=== PATIENT | male | born 1950 | race Caucasian/White ===

== ENCOUNTER 2018-03-11 07:54 | Day surgery (SDC) | payer OTHER ==
[2018-03-11 08:47] VITALS: TEMP 97.9
[2018-03-11 08:53] LABS: Mean Platelet Volume 8.3; Platelet Count 212 k/uL (150-450)
[2018-03-11 08:58] LABS: INR 1.3 (<1.2); Prothrombin Time 12.1 sec (9.0-12.0)
[2018-03-11] MEDS ORDERED: HYDROmorphone 1 MG/ML 1 ML SYRINGE IVP STA (10:50)
--- NOTE | 2018-03-11 13:33 | US ---
EXAMINATION TYPE: US paracentesis abd w/image DATE OF EXAM: 03/11/2018 COMPARISON: Prior CT 01/27/2018 HISTORY: Ascites. PROCEDURE: Maximal barrier technique was utilized. The skin overlying a suitable pocket of fluid was localized with ultrasound and the overlying skin was prepped and draped. Ultrasound was utilized with sterile technique. Lidocaine was used for local anesthesia and a skin chano made with a scalpel. Catheter was advanced under direct ultrasound guidance into a suitable pocket of fluid and approximately 6.4 liter s of serous fluid were removed. Catheter was withdrawn and hemostasis achieved. There is no immedia te complication; the patient is discharged in stable condition. IMPRESSION: STATUS POST ULTRASOUND GUIDED PARACENTESIS FOR PALLIATION OF ASCITES. THIS PROCEDURE WA S PERFORMED BY THE UNDERSIGNED. Specimen sent for laboratory analysis.
--- NOTE | 2018-03-11 13:41 | US ---
EXAMINATION TYPE: US biopsy liver DATE OF EXAM: 03/11/2018 HISTORY: Liver masses. FINDINGS: Maximal barrier technique was utilized. The skin overlying a suitable path to the patient' s left lobe liver mass was localized with ultrasound and the overlying skin prepped and draped. Ultr asound was utilized with sterile technique. Lidocaine was used for local anesthesia. A skin chano wa s made with a scalpel. An 18-gauge needle was advanced under direct ultrasound guidance and core spe cimen obtained of the mass. Specimen submitted in formalin to Pathology. Following the procedure, h emostasis achieved and the patient is discharged in stable condition without complication. IMPRESSION:STATUS POST ULTRASOUND GUIDED CORE BIOPSY OF left lobe liver MASS, PATHOLOGY IS PENDING. THIS PROCEDURE IS PERFORMED BY THE UNDERSIGNED.
[2018-03-11 13:49] VITALS: BP 98/56; PULSE 76; RESP 18
[2018-03-11 18:08] LABS: Protein, Total 7.7 g/dL (6.2-8.2)
[2018-03-12 14:43] LABS: Albumin 2.49 g/dL (3.80-4.90); Gamma Globulin 0.67 g/dL (0.70-1.50)
== END 2018-03-11 13:55 | disposition home or self-care (01) ==
LOC: RADPROMAIN 07:54
PROVIDERS: ATTEND Internal Medicine Gastroenterology
DX: C78.7 Secondary malignant neoplasm of liver and intrahepatic bile duct (principal); R18.8 Other ascites
CPT/HCPCS: 88108; 88305; 82565; 85049; 85610; 88342; 88307; 82042; 88341; 84165; 96374; 36415; 47000; 49083; J1170; 76942

== ENCOUNTER 2018-04-18 19:36 | Inpatient (IN) | payer OTHER, MEDICARE ==
[2018-04-18] MEDS ORDERED: ONDANSETRON 4 MG/2 ML VIAL IVP PRN (22:00)
[2018-04-18] MEDS: MORPHINE SULFATE 4 MG/ML SYRINGE IVP PRN (22:33)
[2018-04-18 23:10] LABS: HCT 39.6 % (39.0-53.0); HGB 12.9 gm/dL (13.0-17.5); MCH 33.4 pg (25.0-35.0); MCHC 32.5 g/dL (31.0-37.0); MCV 102.8 fL (80.0-100.0); Macrocytosis Slight; Mean Platelet Volume 7.9; Platelet Count 169 k/uL (150-450); RBC 3.85 m/uL (4.30-5.90); RDW 15.9 % (11.5-15.5)
[2018-04-18 23:14] LABS: INR 1.6 (<1.2); Prothrombin Time 14.5 sec (9.0-12.0)
[2018-04-18 23:18] LABS: WBC 0.8 k/uL (3.8-10.6)
[2018-04-18 23:19] LABS: Potassium 5.7 mmol/L (3.5-5.1); Total Bilirubin 2.2 mg/dL (0.2-1.3); Total Protein 6.7 g/dL (6.3-8.2)
[2018-04-19] MEDS: MORPHINE SULFATE 4 MG/ML SYRINGE IVP PRN ×3 (02:22→11:36)
[2018-04-19 07:40] VITALS: BMI 18.5
[2018-04-19] MEDS: IPRATROPIUM-ALBUTEROL 3 ML NEB INHALATION SCH ×4 (07:40→19:33)
[2018-04-19] MEDS: FAMOTIDINE 20 MG/2 ML VIAL IV SCH ×2 (09:32→19:53)
--- NOTE | 2018-04-19 10:51 | US ---
EXAMINATION TYPE: US abdomen limited DATE OF EXAM: 04/19/2018 COMPARISON: Previous study dated 03/11/2018 CLINICAL HISTORY: ascites, potential need for paracentesis. Severe ascites. There is a large amount of ascites. IMPRESSION: ASCITES.
[2018-04-19] MEDS ORDERED: ALBUTEROL NEBULIZED 2.5 MG/3 ML INHALATION PRN (10:52)
[2018-04-19] MEDS ORDERED: ALPRAZolam 0.25 MG TAB PO PRN (10:52)
[2018-04-19] MEDS ORDERED: SODIUM POLYSTYRENE SULFONATE 15 GM/60 ML BOTTLE PO STA (11:00)
[2018-04-19] MEDS: METOPROLOL TARTRATE 50 MG TAB PO SCH ×2 (11:35→19:53)
--- NOTE | 2018-04-19 12:10 | P.CONS ---
History of Present Illness - Reason for Consult Consult date: 04/19/18 Pancreatic cancer on chemotherapy Requesting physician: Bridgett Haskins - Chief Complaint Abdominal distension - History of Present Illness Mr. Benjamin is a very pleasant 59-year-old gentleman with recently diagnosed metastatic carcinoma of unknown primary who is here for He follows with Dr. Yao. He presented with progressive abdominal fullness and distention for about 4-6 months. Paracentesis was done 3 times with negative cytology. He also had progressive anorexia and weight loss of 40 pounds in the past 6 months. He had a staging workup that showed metastatic disease with a significantly elevated CA-19-9 of 70,000. His malignancy was was felt to be pancreatic origin. Palliative chemotherapy with FOLFOX was recommended which was started on 03/31/18. He had his second cycle of FOLFOX on 04/14/18. He is here for increasing abdominal distention. He is very uncomfortable due to this. No fevers, chills, nausea, vomiting, diarrhea, constipation, or other complaints. Paracentesis has been ordered. Workup in the ER otherwise unremarkable except for WBC of 0.8, an abdominal ultrasound significant for ascites. No smoking, alcohol, or drug use. No known family history of malignancy. Past Medical History Past Medical History: Asthma, COPD, Hypertension, Liver Disease Additional Past Medical History / Comment(s): anxiety ,depression History of Any Multi-Drug Resistant Organisms: None Reported Past Surgical History: Adenoidectomy, Hernia Repair, Tonsillectomy Additional Past Surgical History / Comment(s): coloscopy, paracentesis Past Anesthesia/Blood Transfusion Reactions: No Reported Reaction Past Psychological History: Anxiety, Depression Smoking Status: Former smoker Past Alcohol Use History: None Reported Past Drug Use History: None Reported - Past Family History Father Family Medical History: Asthma Medications and Allergies Home Medications Medication Instructions Recorded Confirmed Type ALPRAZolam [Xanax] 0.25 mg PO TID PRN 03/03/18 04/18/18 History Albuterol Sulfate [Proair 2 puff PO RT-QID PRN 03/03/18 04/18/18 History Respiclick] Aspirin 81 mg PO DAILY 03/03/18 04/18/18 History Atenolol [Tenormin] 50 mg PO DAILY 03/03/18 04/18/18 History Cholecalciferol [Vitamin D3] 1,000 unit PO DAILY 03/03/18 04/18/18 History Lisinopril [Prinivil] 10 mg PO DAILY 03/03/18 04/18/18 History Multivitamin [Men's Multi-Vitamin] 1 tab PO DAILY 03/03/18 04/18/18 History Pravastatin Sodium [Pravachol] 20 mg PO DAILY 03/03/18 04/18/18 History Spironolactone [Aldactone] 25 mg PO BID 03/03/18 04/18/18 History Tiotropium [place] [Spiriva] 1 cap INHALATION RT-DAILY 03/03/18 04/18/18 History Ascorbic Acid [Vitamin C] 500 mg PO BID 04/18/18 04/18/18 History Budesonide/Formoterol Fumarate 2 puff INHALATION RT-BID 04/18/18 04/18/18 History [Symbicort 160-4.5 Mcg Inhaler] Lisinopril [Zestril] 5 mg PO HS 04/18/18 04/18/18 History Triamcinolone 0.1% Cream [Kenalog 1 applicatio TOPICAL DAILY 04/18/18 04/18/18 History 0.1% Cream] Allergies Allergy/AdvReac Type Severity Reaction Status Date / Time Penicillins Allergy Anaphylaxis Verified 04/18/18 22:59 Physical Exam Vitals: Vital Signs Temp Pulse Resp BP Pulse Ox 04/19/18 05:00 98.0 F 115 H 20 103/68 92 L 04/18/18 23:12 111 H 04/18/18 21:35 98.9 F 139 H 16 116/75 97 Intake and Output 04/18/18 04/19/18 04/19/18 22:59 06:59 14:59 Other: Voiding Method Toilet Toilet Urinal Urinal # Voids 2 Weight 65.5 kg 65.5 kg General: In no acute distress. HEENT: Mucosa moist. Neck: Neck supple. Lymph: No cervical/supraclavicular LAD. Lungs: CTA-B without rhonchi or wheezing. Heart: RRR. No LE edema. Abdomen: Soft, nontender, although significant abdominal distension and tense abdomen due to large amount of ascites. MSK: 4/4 strength in all 4 extremities. Neuro: Alert and oriented 3. Skin: No jaundice or rash. Psych: Appropriate affect. Results CBC & Chem 7: 04/18/18 22:35 04/18/18 22:35 Labs: Abnormal Lab Results - Last 24 Hours (Table) 04/18/18 04/18/18 04/18/18 Range/Units 22:35 22:35 22:35 WBC 0.8 L* (3.8-10.6) k/uL RBC 3.85 L (4.30-5.90) m/uL Hgb 12.9 L (13.0-17.5) gm/dL MCV 102.8 H (80.0-100.0) fL RDW 15.9 H (11.5-15.5) % PT 14.5 H (9.0-12.0) sec INR 1.6 H (<1.2) Potassium 5.7 H (3.5-5.1) mmol/L Chloride 108 H (98-107) mmol/L Carbon Dioxide 17 L (22-30) mmol/L BUN 38 H (9-20) mg/dL Creatinine 1.65 H (0.66-1.25) mg/dL Total Bilirubin 2.2 H (0.2-1.3) mg/dL Albumin 3.0 L (3.5-5.0) g/dL US - abdomen: report reviewed Assessment and Plan Assessment: 1. Recurrent ascites 2. Severe neutropenia due to chemotherapy 3. 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 CKD Plan: Mr. Layton is a very pleasant 67-year-old gentleman with newly found metastatic adenocarcinoma likely pancreatic origin recently started on FOLFOX status post cycle 2 on 04/14/18 here for significant abdominal distention and discomfort due to recurrent ascites. Agree with therapeutic paracentesis. He is significantly neutropenic from recent chemotherapy however he is afebrile. No signs of infection otherwise. No need for G-CSF. Monitor closely for fevers with neutropenic precautions. No objections to discharge from oncologic standpoint after paracentesis. Discussed with the patient in detail and is agreeable to the plan. All of his questions were answered.
--- NOTE | 2018-04-19 13:42 | P.HPIM ---
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 Patient has nonspecific elevation in d-dimer without any symptoms of a pulmonary embolism. Patient also has lactic acidosis secondary to liver failure. Patient is basically admitted for paracentesis patient is scheduled paracentesis as an outpatient but will require paracentesis earlier than scheduled because of which patient is being admitted at this time patient has pancreatic cancer received very chemotherapy recently leading to some low white blood cell count. Patient received FOLFOX on april. Patient has elevated potassium secondary to Aldactone and lisinopril both of which are being held patient is not on IV fluids as he has severe ascites and his lactic acidosis is not significant for infection or intravascular volume depletion and is secondary to cirrhosis. We' ll repeat lactic acid again. Patient will be given capsulate. D-dimer is a nonspecific elevation secondary to his cancer itself. Patient's INR is 1.6 beats because of which she will not require any DVT prophylaxis at this time will order ultrasound guided paracentesis. And repeat labs tomorrow and if labs are better tomorrow and if his symptoms of shortness of breath and discomfort improves patient will be discharged tomorrow. today is quite weak and will require PT and OT evaluation Review of Systems REVIEW OF SYSTEMS: CONSTITUTIONAL: No fever, no malaise, no fatigue. HEENT: No recent visual problems or hearing problems. Denied any sore throat. CARDIOVASCULAR: No chest pain, orthopnea, PND, no palpitations, no syncope. PULMONARY: No shortness of breath, no cough, no hemoptysis. GASTROINTESTINAL: As mentioned and told history NEUROLOGICAL: No headaches, no weakness, no numbness. HEMATOLOGICAL: Denies any bleeding or petechiae. GENITOURINARY: Denies any burning micturition, frequency, or urgency. MUSCULOSKELETAL/RHEUMATOLOGICAL: Denies any joint pain, swelling, or any muscle pain. ENDOCRINE: Denies any polyuria or polydipsia. The rest of the 14-point review of systems is negative. Past Medical History Past Medical History: Asthma, COPD, Hypertension, Liver Disease Additional Past Medical History / Comment(s): anxiety ,depression History of Any Multi-Drug Resistant Organisms: None Reported Past Surgical History: Adenoidectomy, Hernia Repair, Tonsillectomy Additional Past Surgical History / Comment(s): coloscopy, paracentesis Past Anesthesia/Blood Transfusion Reactions: No Reported Reaction Past Psychological History: Anxiety, Depression Smoking Status: Former smoker Past Alcohol Use History: None Reported Past Drug Use History: None Reported - Past Family History Father Family Medical History: Asthma Medications and Allergies Home Medications Medication Instructions Recorded Confirmed Type ALPRAZolam [Xanax] 0.25 mg PO TID PRN 03/03/18 04/18/18 History Albuterol Sulfate [Proair 2 puff PO RT-QID PRN 03/03/18 04/18/18 History Respiclick] Aspirin 81 mg PO DAILY 03/03/18 04/18/18 History Atenolol [Tenormin] 50 mg PO DAILY 03/03/18 04/18/18 History Cholecalciferol [Vitamin D3] 1,000 unit PO DAILY 03/03/18 04/18/18 History Lisinopril [Prinivil] 10 mg PO DAILY 03/03/18 04/18/18 History Multivitamin [Men's Multi-Vitamin] 1 tab PO DAILY 03/03/18 04/18/18 History Pravastatin Sodium [Pravachol] 20 mg PO DAILY 03/03/18 04/18/18 History Spironolactone [Aldactone] 25 mg PO BID 03/03/18 04/18/18 History Tiotropium [place] [Spiriva] 1 cap INHALATION RT-DAILY 03/03/18 04/18/18 History Ascorbic Acid [Vitamin C] 500 mg PO BID 04/18/18 04/18/18 History Budesonide/Formoterol Fumarate 2 puff INHALATION RT-BID 04/18/18 04/18/18 History [Symbicort 160-4.5 Mcg Inhaler] Lisinopril [Zestril] 5 mg PO HS 04/18/18 04/18/18 History Triamcinolone 0.1% Cream [Kenalog 1 applicatio TOPICAL DAILY 04/18/18 04/18/18 History 0.1% Cream] Allergies Allergy/AdvReac Type Severity Reaction Status Date / Time Penicillins Allergy Anaphylaxis Verified 04/18/18 22:59 Physical Exam Vitals: Vital Signs Temp Pulse Pulse Resp BP Pulse Ox 04/19/18 11:53 110 H 04/19/18 11:43 110 H 04/19/18 07:50 112 H 04/19/18 07:40 110 H 04/19/18 05:00 98.0 F 115 H 20 103/68 92 L 04/18/18 23:12 111 H 04/18/18 21:35 98.9 F 139 H 16 116/75 97 Intake and Output 04/18/18 04/19/18 04/19/18 22:59 06:59 14:59 Other: Voiding Method Toilet Toilet Urinal Urinal # Voids 2 0 Weight 65.5 kg 65.5 kg PHYSICAL EXAMINATION: GENERAL: The patient is alert and oriented x3, not in any acute distress. Thin built cachectic. HEENT: Pupils are round and equally reacting to light. EOMI. No scleral icterus. No conjunctival pallor. Normocephalic, atraumatic. No pharyngeal erythema. No thyromegaly. CARDIOVASCULAR: S1 and S2 present. No murmurs, rubs, or gallops. PULMONARY: Chest is clear to auscultation, no wheezing or crackles. ABDOMEN: As distended nontender shifting dullness is present and fluid thrill is present. Without medical hernia signs of cirrhosis. MUSCULOSKELETAL: No joint swelling or deformity. EXTREMITIES: No cyanosis, clubbing, or pedal edema. NEUROLOGICAL: Gross neurological examination did not reveal any focal deficits. SKIN: No rashes. Results CBC & Chem 7: 04/18/18 22:35 04/18/18 22:35 Labs: Abnormal Lab Results - Last 24 Hours (Table) 04/18/18 04/18/18 04/18/18 Range/Units 22:35 22:35 22:35 WBC 0.8 L* (3.8-10.6) k/uL RBC 3.85 L (4.30-5.90) m/uL Hgb 12.9 L (13.0-17.5) gm/dL MCV 102.8 H (80.0-100.0) fL RDW 15.9 H (11.5-15.5) % PT 14.5 H (9.0-12.0) sec INR 1.6 H (<1.2) Potassium 5.7 H (3.5-5.1) mmol/L Chloride 108 H (98-107) mmol/L Carbon Dioxide 17 L (22-30) mmol/L BUN 38 H (9-20) mg/dL Creatinine 1.65 H (0.66-1.25) mg/dL Plasma Lactic Acid [place] (0.7-2.0) mmol/L Total Bilirubin 2.2 H (0.2-1.3) mg/dL Albumin 3.0 L (3.5-5.0) g/dL 04/19/18 Range/Units 12:19 WBC (3.8-10.6) k/uL RBC (4.30-5.90) m/uL Hgb (13.0-17.5) gm/dL MCV (80.0-100.0) fL RDW (11.5-15.5) % PT (9.0-12.0) sec INR (<1.2) Potassium (3.5-5.1) mmol/L Chloride (98-107) mmol/L Carbon Dioxide (22-30) mmol/L BUN (9-20) mg/dL Creatinine (0.66-1.25) mg/dL Plasma Lactic Acid [place] 4.2 H* (0.7-2.0) mmol/L Total Bilirubin (0.2-1.3) mg/dL Albumin (3.5-5.0) g/dL Thrombosis Risk Factor Assmnt - Choose All That Apply Any of the Below Risk Factors Present?: Yes Each Risk Factor Represents 2 Points: Age 61-74 years Thrombosis Risk Factor Assessment Total Risk Factor Score: 2 Thrombosis Risk Factor Assessment Level: Low Risk Assessment and Plan Plan: -Ascites, symptomatic leading to shortness of breath and abdominal discomfort secondary to cirrhosis probably alcoholic cirrhosis [place] paracentesis as mentioned above I do not believe patient has spontaneous rectal peritonitis at this time. --Pancreatic cancer recently received chemotherapy -Neutropenia secondary to recent chemotherapy already received the colony- stimulating acting factor injection oncology was consulted -Hyperkalemia secondary to KIMBERLEY inhibitor and Aldactone both of which are being held, Late as mentioned above -COPD without any acute exacerbation -Sinus tachycardia reflex tachycardia as patient did not receive his beta nora patient will be resumed on beta nora but will start him on metoprolol instead of atenolol because of borderline low blood pressure -Depression
[2018-04-19 15:13] LABS: Appearance,BF Hazy; Color,BF Yellow
[2018-04-19 15:14] LABS: Nucleated Cells, Body Fluid 28 /uL; RBC, Body Fluid 25 /uL
[2018-04-19 15:30] LABS: Mononuclear WBC,Body Fluid 100 %; Total Cells Counted,Body Fluid 100
[2018-04-19] MEDS: SYMBICORT 160-4.5 MCG INHALER INHALATION SCH (19:33)
[2018-04-19] MEDS: CEFEPIME 2 GM in SODIUM CHLORIDE 0.9% 50 ML IVPB SCH (19:46)
[2018-04-19] MEDS: SODIUM CHLORIDE 0.9% 1,000 ML IV SCH (19:46)
[2018-04-19 23:01] LABS: Total Protein, Body Fluid 940 mg/dL
[2018-04-20] MEDS: CEFEPIME 2 GM in SODIUM CHLORIDE 0.9% 50 ML IVPB SCH ×2 (02:47→10:02)
[2018-04-20 06:14] LABS: Anisocytosis Slight; HCT 32.7 % (39.0-53.0); HGB 10.9 gm/dL (13.0-17.5); MCH 34.2 pg (25.0-35.0); MCHC 33.5 g/dL (31.0-37.0); MCV 102.4 fL (80.0-100.0); Macrocytosis Slight; Mean Platelet Volume 8.6; Platelet Count 105 k/uL (150-450); RDW 17.1 % (11.5-15.5); WBC 2.1 k/uL (3.8-10.6)
[2018-04-20] MEDS: IPRATROPIUM-ALBUTEROL 3 ML NEB INHALATION SCH ×4 (07:11→21:00)
[2018-04-20] MEDS: SYMBICORT 160-4.5 MCG INHALER INHALATION SCH ×2 (07:11→21:00)
[2018-04-20] MEDS ORDERED: NON-FORMULARY DRUG (Tiotropium Bromide [Spiriva] 1 CAP) INHALATION SCH (08:00)
[2018-04-20] MEDS ORDERED: ATENOLOL 50 MG TAB PO SCH (09:00)
[2018-04-20] MEDS: METOPROLOL TARTRATE 50 MG TAB PO SCH ×2 (10:03→22:15)
[2018-04-20] MEDS: FAMOTIDINE 20 MG/2 ML VIAL IV SCH (10:03)
[2018-04-20] MEDS: TRIAMCINOLONE 0.1% CREAM 80 GM TUBE TOPICAL SCH (10:04)
--- NOTE | 2018-04-20 14:59 | P.PN ---
Subjective Patient with cirrhosis and pancreatic cancer admitted for therapeutic paracentesis patient had removal of total of 8 L of peritoneal fluid. The fluid lab results are exudative in nature probably because of the pancreatic cancer. Patient had elevated lactic acid which has come down now to 2.5 lactic acid elevation is secondary to cirrhosis. His white blood cell count is getting better patient is bit tachycardic I do not have his potassium available today. We'll repeat this, his metabolic profile today as well as tomorrow. We will await for PT and OT evaluation possibility of discharge tomorrow. Constitutional: Denied any fatigue denied any fever. Cardio vascular: denied any chest pain, palpitations Gastrointestinal denied any nausea vomiting Pulmonary: Denied any shortness of breath cough Neurologic denied any new focal deficits All inpatient medications were reviewed and appropriate changes in these medications as dictated in the interval history and assessment and plan. Objective - Vital Signs Vital signs: Vital Signs Temp 97.7 F 04/20/18 05:49 Pulse 72 04/20/18 12:38 Resp 16 04/20/18 12:38 BP 123/60 04/20/18 12:38 Pulse Ox 100 04/20/18 12:38 Intake & Output 04/19/18 04/20/18 04/20/18 18:59 06:59 18:59 Intake Total 1230 Output Total 8700 Balance -8700 1230 Weight 65.5 kg Intake: Intake, IV Titration 400 Amount Sodium Chloride 0.9% 1, 400 000 ml @ 50 mls/hr IV . Q20H [facility] Rx#:[id number] Oral 830 Output: Drainage 8700 Right Abdomen 8700 Other: Voiding Method Toilet Toilet Toilet Urinal Urinal Urinal # Voids 0 1 2 - Exam PHYSICAL EXAMINATION: GENERAL: The patient is alert and oriented x3, not in any acute distress. Thin built cachectic. HEENT: Pupils are round and equally reacting to light. EOMI. No scleral icterus. No conjunctival pallor. Normocephalic, atraumatic. No pharyngeal erythema. No thyromegaly. CARDIOVASCULAR: S1 and S2 present. No murmurs, rubs, or gallops. PULMONARY: Chest is clear to auscultation, no wheezing or crackles. ABDOMEN: Soft today significantly improved abdominal distention after peritoneal tap MUSCULOSKELETAL: No joint swelling or deformity. EXTREMITIES: No cyanosis, clubbing, or pedal edema. NEUROLOGICAL: Gross neurological examination did not reveal any focal deficits. SKIN: No rashes. - Labs CBC & Chem 7: 04/20/18 06:00 04/18/18 22:35 Labs: Abnormal Lab Results - Last 24 Hours (Table) 04/19/18 04/19/18 04/20/18 Range/Units 17:02 21:51 06:00 WBC 2.1 L (3.8-10.6) k/uL RBC 3.20 L (4.30-5.90) m/uL Hgb 10.9 L (13.0-17.5) gm/dL Hct 32.7 L (39.0-53.0) % MCV 102.4 H (80.0-100.0) fL RDW 17.1 H (11.5-15.5) % Plt Count 105 L (150-450) k/uL Plasma Lactic Acid Rakan 5.2 H* 2.5 H* (0.7-2.0) mmol/L Microbiology - Last 24 Hours (Table) 04/19/18 14:45 Gram Stain - Preliminary Peritoneal Fluid Body Fluid Culture - Preliminary 04/19/18 14:45 Anaerobic Culture - Preliminary Peritoneal Fluid Assessment and Plan Plan: -Ascites, symptomatic leading to shortness of breath and abdominal discomfort is clearly improved patient looks much better today after therapeutic paracentesis removal of a wart 8 L of fluid appeared to be exudative secondary to cancer mostly --Pancreatic cancer recently received chemotherapy -Neutropenia secondary to recent chemotherapy, improving now -Hyperkalemia secondary to KIMBERLEY inhibitor and Aldactone both of which are being held, repeat compresses metabolic profile today -COPD without any acute exacerbation -Sinus tachycardia reflex tachycardia as patient did not receive his beta nora patient will be resumed on beta nora but will start him on metoprolol instead of atenolol because of borderline low blood pressure -Depression
[2018-04-20] MEDS: SODIUM CHLORIDE 0.9% 1,000 ML IV SCH (20:45)
--- NOTE | 2018-04-20 23:46 | P.CONS ---
History of Present Illness - Reason for Consult Consult date: 04/20/18 Ascites Requesting physician: Rosemarie Mckeon - Chief Complaint Shortness of breath - History of Present Illness 67-year-old with history of COPD, asthma and metastatic pancreatic cancer with suspected liver disease with presents with complaints of shortness of breath. On discussion with the patient's he has a known history of metastatic pancreatic cancer and has received his second cycle of FOLFOX with the last treatment on 04/14/2018. The patient has multiple complaints including shortness of breath and a 40 pound weight loss in the past 6 months. He is required removal of a site disease with 3 prior paracentesis. On this admission the patient had ascites found on ultrasound and underwent paracentesis with a large amount of fluid removed. The patient denies any nausea or vomiting at this time and is tolerating his diet. He denies any change in his abdominal pain or change in his bowel habits. No signs or symptoms of GI bleeding. Review of Systems REVIEW OF SYSTEMS: CARDIO: Denies any chest pain or palpitations. PULMONARY: Denies any wheezing but did have shortness of breath on presentation. GENITOURINARY: No dysuria or hematuria. MUSCULOSKELETAL: No weakness reported. SKIN: Denies any new rashes or lesions, jaundice or pallor. PSYCHIATRIC: Denies any depression or anxiety. NEUROLOGY: Denies headache, denies any new focal deficits. EARS: No tinnitus, discharge or new hearing loss. NOSE: No discharge or congestion. EYES: No pain in eyes or change in vision. CONSTITUTIONAL: Weight loss reported. No fever, chills, night sweats. Past Medical History Past Medical History: Asthma, COPD, Hypertension, Liver Disease Additional Past Medical History / Comment(s): anxiety ,depression History of Any Multi-Drug Resistant Organisms: None Reported Past Surgical History: Adenoidectomy, Hernia Repair, Tonsillectomy Additional Past Surgical History / Comment(s): coloscopy, paracentesis Past Anesthesia/Blood Transfusion Reactions: No Reported Reaction Past Psychological History: Anxiety, Depression Smoking Status: Former smoker Past Alcohol Use History: None Reported Past Drug Use History: None Reported - Past Family History Father Family Medical History: Asthma Medications and Allergies Home Medications Medication Instructions Recorded Confirmed Type ALPRAZolam [Xanax] 0.25 mg PO TID PRN 03/03/18 04/18/18 History Albuterol Sulfate [Proair 2 puff PO RT-QID PRN 03/03/18 04/18/18 History Respiclick] Aspirin 81 mg PO DAILY 03/03/18 04/18/18 History Atenolol [Tenormin] 50 mg PO DAILY 03/03/18 04/18/18 History Cholecalciferol [Vitamin D3] 1,000 unit PO DAILY 03/03/18 04/18/18 History Lisinopril [Prinivil] 10 mg PO DAILY 03/03/18 04/18/18 History Multivitamin [Men's Multi-Vitamin] 1 tab PO DAILY 03/03/18 04/18/18 History Pravastatin Sodium [Pravachol] 20 mg PO DAILY 03/03/18 04/18/18 History Tiotropium [place] [Spiriva] 1 cap INHALATION RT-DAILY 03/03/18 04/18/18 History Ascorbic Acid [Vitamin C] 500 mg PO BID 04/18/18 04/18/18 History Budesonide/Formoterol Fumarate 2 puff INHALATION RT-BID 04/18/18 04/18/18 History [Symbicort 160-4.5 Mcg Inhaler] Triamcinolone 0.1% Cream [Kenalog 1 applicatio TOPICAL DAILY 04/18/18 04/18/18 History 0.1% Cream] Allergies Allergy/AdvReac Type Severity Reaction Status Date / Time Penicillins Allergy Anaphylaxis Verified 04/18/18 22:59 Physical Exam Vitals: Vital Signs Temp Pulse Pulse Resp BP Pulse Ox 04/20/18 23:12 73 16 04/20/18 21:54 97 F L 73 16 90/54 100 04/20/18 16:00 72 16 04/20/18 12:38 72 16 123/60 100 04/20/18 08:00 55 L 16 04/20/18 07:22 102 H 04/20/18 07:11 100 04/20/18 05:49 97.7 F 55 L 16 103/49 100 Intake and Output 04/20/18 04/20/18 04/21/18 14:59 22:59 06:59 Intake Total 400 Balance 400 Intake: Intake, IV Titration 400 Amount Sodium Chloride 0.9% 1, 400 000 ml @ 50 mls/hr IV . Q20H [facility] Rx#:[id number] Other: Voiding Method Toilet Toilet Toilet Urinal Urinal Urinal # Voids 2 2 Weight 65.5 kg Results CBC & Chem 7: 04/20/18 06:00 04/18/18 22:35 Labs: Abnormal Lab Results - Last 24 Hours (Table) 04/20/18 Range/Units 06:00 WBC 2.1 L (3.8-10.6) k/uL RBC 3.20 L (4.30-5.90) m/uL Hgb 10.9 L (13.0-17.5) gm/dL Hct 32.7 L (39.0-53.0) % MCV 102.4 H (80.0-100.0) fL RDW 17.1 H (11.5-15.5) % Plt Count 105 L (150-450) k/uL Microbiology - Last 24 Hours (Table) 04/19/18 18:52 Blood Culture - Preliminary Blood No Growth after 24 hours 04/19/18 14:45 Gram Stain - Preliminary Peritoneal Fluid Body Fluid Culture - Preliminary 04/19/18 14:45 Anaerobic Culture - Preliminary Peritoneal Fluid US - abdomen: report reviewed (Abdominal ultrasound significant for ascites.) Assessment and Plan (1) Pancreatic cancer Current Visit: Yes Status: Acute Code(s): C25.9 - MALIGNANT NEOPLASM OF PANCREAS, UNSPECIFIED SNOMED Code(s): 144130391 (2) Ascites Current Visit: Yes Status: Acute Code(s): R18.8 - OTHER ASCITES SNOMED Code(s): 207301802 Plan: Supportive care Low-sodium diet Continue paracentesis as needed, studies consistent with liver etiology If creatinine improves can consider addition of Lasix and or spironolactone Continue pain control Continue treatment of malignancy per oncology Thank you for allowing us to participate in the care of this patient we will continue to follow
[2018-04-21] MEDS: SYMBICORT 160-4.5 MCG INHALER INHALATION SCH ×2 (07:59→20:13)
[2018-04-21] MEDS: IPRATROPIUM-ALBUTEROL 3 ML NEB INHALATION SCH ×4 (07:59→20:13)
[2018-04-21] MEDS: TRIAMCINOLONE 0.1% CREAM 80 GM TUBE TOPICAL SCH (11:55)
[2018-04-21] MEDS: METOPROLOL TARTRATE 50 MG TAB PO SCH ×2 (11:55→20:39)
[2018-04-21] MEDS: FAMOTIDINE 20 MG/2 ML VIAL IV SCH (11:55)
[2018-04-21] MEDS: SODIUM CHLORIDE 0.9% 1,000 ML IV SCH (11:56)
[2018-04-21] MEDS: VANCOMYCIN ORAL SOLUTION 250 MG/5 ML BOTTLE PO SCH ×3 (14:11→23:42)
[2018-04-21] MEDS: CHERRY FLAVOR 60 ML BOTTLE PO PRN ×2 (14:11→23:42)
[2018-04-21 14:48] LABS: Albumin 2.6 g/dL (3.5-5.0); Calcium 8.5 mg/dL (8.4-10.2); Potassium 5.6 mmol/L (3.5-5.1); Total Bilirubin 1.6 mg/dL (0.2-1.3)
--- NOTE | 2018-04-21 18:34 | P.PN ---
Subjective Progress Note Date: 04/21/18 Prognosis note being dictated for Dr. Mckeon. Interval history:Patient with cirrhosis and pancreatic cancer admitted for therapeutic paracentesis patient had removal of total of 8 L of peritoneal fluid. The fluid lab results are exudative in nature probably because of the pancreatic cancer. Patient had elevated lactic acid which has come down now to 2.5 lactic acid elevation is secondary to cirrhosis. His white blood cell count is getting better patient is bit tachycardic I do not have his potassium available today. We'll repeat this, his metabolic profile today as well as tomorrow. We will await for PT and OT evaluation possibility of discharge tomorrow. Constitutional: Denied any fatigue denied any fever. Cardio vascular: denied any chest pain, palpitations Gastrointestinal denied any nausea vomiting Pulmonary: Denied any shortness of breath cough Neurologic denied any new focal deficits All inpatient medications were reviewed and appropriate changes in these medications as dictated in the interval history and assessment and plan. 04/21/2018 persistent diarrhea, 3 episodes this morning. Tested positive for C. difficile. Oral vancomycin initiated. Denies abdominal pain. No nausea or vomiting. Worsening renal function, creatinine 2.06. Potassium 5.6. Objective - Vital Signs Vital signs: Vital Signs Temp 97.5 F L 04/21/18 12:34 Pulse 76 04/21/18 16:14 Resp 16 04/21/18 12:34 BP 125/62 04/21/18 12:34 Pulse Ox 95 04/21/18 12:34 Intake & Output 04/20/18 04/21/18 04/21/18 18:59 06:59 18:59 Intake Total 940 250 Balance 940 250 Weight 65.5 kg 65.5 kg Intake: Intake, IV Titration 700 250 Amount Cefepime 2 gm In Sodium 50 Chloride 0.9% 50 ml @ 100 mls/hr IVPB Q8H [facility] Rx#: [id number] Sodium Chloride 0.9% 1, 700 200 000 ml @ 50 mls/hr IV . Q20H [facility] Rx#:[id number] Oral 240 Other: Voiding Method Toilet Toilet Toilet Urinal Urinal Urinal Diaper Incontinent # Voids 2 2 # Bowel Movements 1 - Exam GENERAL: The patient is alert and oriented x3, not in any acute distress. Thin built cachectic. HEENT: Pupils are round and equally reacting to light. EOMI. No scleral icterus. No conjunctival pallor. Normocephalic, atraumatic. CARDIOVASCULAR: S1 and S2 present. No murmurs, rubs, or gallops. PULMONARY: Chest is clear to auscultation, no wheezing or crackles. ABDOMEN: Soft today significantly improved abdominal distention after peritoneal tap MUSCULOSKELETAL: No joint swelling or deformity. EXTREMITIES: No cyanosis, clubbing, or pedal edema. NEUROLOGICAL: Gross neurological examination did not reveal any focal deficits. - Labs CBC & Chem 7: 04/20/18 06:00 04/21/18 14:21 Labs: Abnormal Lab Results - Last 24 Hours (Table) 04/21/18 04/21/18 Range/Units 09:06 14:21 Potassium 5.6 H (3.5-5.1) mmol/L Chloride 112 H (98-107) mmol/L Carbon Dioxide 13 L (22-30) mmol/L BUN 79 H (9-20) mg/dL Creatinine 2.06 H (0.66-1.25) mg/dL Glucose 108 H (74-99) mg/dL Total Bilirubin 1.6 H (0.2-1.3) mg/dL Total Protein 6.0 L (6.3-8.2) g/dL Albumin 2.6 L (3.5-5.0) g/dL C. difficile (EIA) Intrp Positive A (Negative) Microbiology - Last 24 Hours (Table) 04/19/18 18:52 Blood Culture - Preliminary Blood No Growth after 24 hours 04/19/18 14:45 Gram Stain - Preliminary Peritoneal Fluid Body Fluid Culture - Preliminary Assessment and Plan Assessment: -Ascites, symptomatic leading to shortness of breath and abdominal discomfort. Status post therapeutic paracentesis removal of 8 L of fluid appeared to be exudative secondary to cancer mostly --Pancreatic cancer recently received chemotherapy -Neutropenia secondary to recent chemotherapy, improving now -Hyperkalemia secondary to KIMBERLEY inhibitor and Aldactone both of which are discontinued -COPD without any acute exacerbation -Sinus tachycardia reflex tachycardia, patient did not receive his beta nora, resumed on metoprolol secondary to borderline low blood pressure -Depression -Acute C. difficile colitis Plan: Continue on current medication regime ,monitoring and symptomatic treatment. Worsening renal function,therefore maintain IV fluids. Oral vancomycin initiated. Was monitoring of renal function, electrolyte with repeat labs ordered for a.m. The impression and plan of care has been dictated as directed. : I performed a history and examination of this patient, discussed the same with the dictator. I agree with the dictator's note ,documented as a scribe. Any additional findings or plans will be noted.
[2018-04-21] MEDS: MORPHINE SULFATE 4 MG/ML SYRINGE IVP PRN (21:48)
[2018-04-22] MEDS: CHERRY FLAVOR 60 ML BOTTLE PO PRN ×3 (05:14→17:51)
[2018-04-22] MEDS: VANCOMYCIN ORAL SOLUTION 250 MG/5 ML BOTTLE PO SCH ×3 (05:14→17:52)
[2018-04-22] MEDS: SODIUM CHLORIDE 0.9% 1,000 ML IV SCH (05:14)
[2018-04-22 05:47] LABS: Anisocytosis Slight; Basophils % (A) 0 %; Eosinophils % (A) 1 %; HCT 32.7 % (39.0-53.0); HGB 11.1 gm/dL (13.0-17.5); Lymphocytes # (A) 0.8 k/uL (1.0-4.8); Lymphocytes % (A) 65 %; MCH 33.7 pg (25.0-35.0); MCHC 33.9 g/dL (31.0-37.0); MCV 99.4 fL (80.0-100.0); Macrocytosis Slight; Monocytes % (A) 1 %; Neutrophils % (A) 28 %; RBC 3.29 m/uL (4.30-5.90)
[2018-04-22 05:57] LABS: Calcium 8.5 mg/dL (8.4-10.2); Potassium 5.2 mmol/L (3.5-5.1)
[2018-04-22 06:04] LABS: Neutrophils # (A) 0.4 k/uL (1.3-7.7); WBC 1.3 k/uL (3.8-10.6)
[2018-04-22 07:20] LABS: Platelet Count 93 k/uL (150-450)
[2018-04-22] MEDS: SYMBICORT 160-4.5 MCG INHALER INHALATION SCH ×2 (07:53→20:40)
[2018-04-22] MEDS: IPRATROPIUM-ALBUTEROL 3 ML NEB INHALATION SCH ×4 (07:53→20:40)
[2018-04-22] MEDS: TRIAMCINOLONE 0.1% CREAM 80 GM TUBE TOPICAL SCH (09:13)
[2018-04-22] MEDS: FAMOTIDINE 20 MG TAB PO SCH (09:13)
[2018-04-22] MEDS: METOPROLOL TARTRATE 50 MG TAB PO SCH ×2 (09:13→21:23)
--- NOTE | 2018-04-22 13:57 | P.PN ---
Subjective Progress Note Date: 04/22/18 Principal diagnosis: Metastatic pancreatic cancer shortness of breath Status post paracentesis cytology pending. C. diff EIA positive. One bowel movement since last night. White count 1.3. Hemoglobin 11.1. Platelet 93, 000. He should requesting discharge. Removed his IV from his Mediport. Creatinine slightly improved today 1.7. Objective - Vital Signs Vital signs: Vital Signs Temp 97.6 F 04/22/18 05:00 Pulse 88 04/22/18 12:38 Resp 17 04/22/18 05:00 BP 122/64 04/22/18 05:00 Pulse Ox 94 L 04/22/18 05:00 Intake & Output 04/21/18 04/22/18 04/22/18 18:59 06:59 18:59 Intake Total 310 1640 Balance 310 1640 Weight 65.5 kg 65.5 kg Intake: Intake, IV Titration 250 800 Amount Cefepime 2 gm In Sodium 50 Chloride 0.9% 50 ml @ 100 mls/hr IVPB Q8H [facility] Rx#: [id number] Sodium Chloride 0.9% 1, 200 800 000 ml @ 50 mls/hr IV . Q20H [facility] Rx#:[id number] Oral 60 840 Other: Voiding Method Toilet Toilet Toilet Urinal Urinal Urinal Diaper Diaper Diaper Incontinent Incontinent Incontinent # Voids 2 # Bowel Movements 1 - Exam General appearance: The patient is alert, oriented, in no acute distress. Cachectic appearance. HET: Head is normocephalic and atraumatic. Pupils are equal and reactive. Oropharynx is clear without lesions. Neck: Supple without lymphadenopathy. Trachea midline. Heart: S1 S2. Regular rate and rhythm. Lungs: No crackles or wheezes are heard. Abdomen: Soft, nontender, nondistended with bowel sounds. No peritoneal signs. No palpable organomegaly or masses. Extremities: Normal skin color and turgor. No cyanosis, rash, ulceration, clubbing, or edema. Radial and pedal pulses are 2/4 bilaterally. Neurological: No focal deficits. Strength and sensation are grossly intact. - Labs CBC & Chem 7: 04/22/18 05:20 04/22/18 05:20 Labs: Abnormal Lab Results - Last 24 Hours (Table) 04/21/18 04/22/18 04/22/18 Range/Units 14:21 05:20 05:20 WBC 1.3 L* (3.8-10.6) k/uL RBC 3.29 L (4.30-5.90) m/uL Hgb 11.1 L (13.0-17.5) gm/dL Hct 32.7 L (39.0-53.0) % RDW 16.0 H (11.5-15.5) % Plt Count 93 L (150-450) k/uL Neutrophils # 0.4 L* (1.3-7.7) k/uL Lymphocytes # 0.8 L (1.0-4.8) k/uL Potassium 5.6 H 5.2 H (3.5-5.1) mmol/L Chloride 112 H 114 H (98-107) mmol/L Carbon Dioxide 13 L 15 L (22-30) mmol/L BUN 79 H 79 H (9-20) mg/dL Creatinine 2.06 H 1.79 H (0.66-1.25) mg/dL Glucose 108 H 109 H (74-99) mg/dL Total Bilirubin 1.6 H (0.2-1.3) mg/dL Total Protein 6.0 L (6.3-8.2) g/dL Albumin 2.6 L (3.5-5.0) g/dL Microbiology - Last 24 Hours (Table) 04/19/18 18:52 Blood Culture - Preliminary Blood No Growth after 48 hours 04/19/18 14:45 Gram Stain - Preliminary Peritoneal Fluid Body Fluid Culture - Preliminary 04/19/18 14:45 Anaerobic Culture - Preliminary Peritoneal Fluid Assessment and Plan (1) Ascites Current Visit: Yes Status: Acute Code(s): R18.8 - OTHER ASCITES SNOMED Code(s): 076363004 (2) Pancreatic cancer Current Visit: Yes Status: Acute Code(s): C25.9 - MALIGNANT NEOPLASM OF PANCREAS, UNSPECIFIED SNOMED Code(s): 843201675 Plan: Paracentesis cytology pending. Continue a low-sodium diet. Antibiotics empirically for positive C. diff. Consideration for low-dose diuretics as creatinine continues to improve. Discharge per medicine. Assessment and plan a care discussed with Dr. Howe
[2018-04-22] MEDS: MORPHINE SULFATE 4 MG/ML SYRINGE IVP PRN (19:37)
[2018-04-22 23:26] VITALS: TEMP 97.8
[2018-04-23] MEDS: VANCOMYCIN ORAL SOLUTION 250 MG/5 ML BOTTLE PO SCH ×5 (00:36→23:07)
[2018-04-23] MEDS: SODIUM CHLORIDE 0.9% 1,000 ML IV SCH ×2 (00:36→23:06)
[2018-04-23] MEDS: CHERRY FLAVOR 60 ML BOTTLE PO PRN (00:36)
[2018-04-23 05:59] VITALS: PULSE 69
[2018-04-23] MEDS: SYMBICORT 160-4.5 MCG INHALER INHALATION SCH ×2 (08:30→20:56)
[2018-04-23] MEDS: IPRATROPIUM-ALBUTEROL 3 ML NEB INHALATION SCH ×4 (08:30→20:56)
[2018-04-23] MEDS: FAMOTIDINE 20 MG TAB PO SCH (09:21)
[2018-04-23] MEDS: METOPROLOL TARTRATE 50 MG TAB PO SCH ×2 (09:21→20:24)
[2018-04-23] MEDS: TRIAMCINOLONE 0.1% CREAM 80 GM TUBE TOPICAL SCH (09:22)
--- NOTE | 2018-04-23 10:21 | P.PN ---
Subjective Progress Note Date: 04/23/18 Principal diagnosis: Metastatic pancreatic cancer shortness of breath Status post paracentesis cytology pending. C. diff EIA positive. Confused. Objective - Vital Signs Vital signs: Vital Signs Temp 97.8 F 04/23/18 05:00 Pulse 69 04/23/18 05:00 Resp 16 04/23/18 05:00 BP 109/48 04/23/18 05:00 Pulse Ox 100 04/23/18 05:00 Intake & Output 04/22/18 04/23/18 04/23/18 18:59 06:59 18:59 Intake Total 140 400 Balance 140 400 Intake: Intake, IV Titration 140 400 Amount Sodium Chloride 0.9% 1, 140 400 000 ml @ 50 mls/hr IV . Q20H [facility] Rx#:[id number] Oral 0 Other: Voiding Method Toilet Diaper Urinal Incontinent Diaper Incontinent # Voids 0 - Exam General appearance: The patient is alert, oriented, to self in no acute distress. Cachectic appearance. HET: Head is normocephalic and atraumatic. Pupils are equal and reactive. Oropharynx is clear without lesions. Neck: Supple without lymphadenopathy. Trachea midline. Heart: S1 S2. Regular rate and rhythm. Lungs: No crackles or wheezes are heard. Abdomen: Soft, nontender, nondistended with bowel sounds. No peritoneal signs. No palpable organomegaly or masses. Extremities: Normal skin color and turgor. No cyanosis, rash, ulceration, clubbing, or edema. Radial and pedal pulses are 2/4 bilaterally. Neurological: No focal deficits. Strength and sensation are grossly intact. - Labs CBC & Chem 7: 04/22/18 05:20 04/22/18 05:20 Labs: Microbiology - Last 24 Hours (Table) 04/19/18 18:52 Blood Culture - Preliminary Blood No Growth after 72 hours 04/19/18 14:45 Gram Stain - Preliminary Peritoneal Fluid Body Fluid Culture - Preliminary Assessment and Plan (1) Ascites Current Visit: Yes Status: Acute Code(s): R18.8 - OTHER ASCITES SNOMED Code(s): 533504153 (2) Pancreatic cancer Current Visit: Yes Status: Acute Code(s): C25.9 - MALIGNANT NEOPLASM OF PANCREAS, UNSPECIFIED SNOMED Code(s): 105199330 Plan: Paracentesis cytology pending. Ammonia level rule out hepatic encephalopathy patient is confused. Continue a low-sodium diet. Antibiotics empirically for positive C. diff. Consideration for low-dose diuretics as creatinine continues to improve. Discharge per medicine. Assessment and plan a care discussed with Dr. Howe
[2018-04-23 11:23] LABS: Anisocytosis Slight; HCT 33.8 % (39.0-53.0); HGB 11.2 gm/dL (13.0-17.5); MCH 34.1 pg (25.0-35.0); MCHC 33.2 g/dL (31.0-37.0); MCV 102.6 fL (80.0-100.0); Macrocytosis Moderate; RBC 3.29 m/uL (4.30-5.90); RDW 17.2 % (11.5-15.5); WBC 0.5 k/uL (3.8-10.6)
[2018-04-23 11:24] LABS: Platelet Count 62 k/uL (150-450)
[2018-04-23 11:30] LABS: Albumin 2.5 g/dL (3.5-5.0); Calcium 8.9 mg/dL (8.4-10.2); Potassium 5.7 mmol/L (3.5-5.1); Total Bilirubin 3.3 mg/dL (0.2-1.3); Total Protein 5.7 g/dL (6.3-8.2)
--- NOTE | 2018-04-23 11:57 | CDI ---
Last Revision, May 2017 Documentation Clarification Form Date: 04/23/2018 11:47:54 AM From: Mendy Murrell RN, CCDS Admit Date: 04/18/2018 10:30:00 PM Patient Name: Mir Benjamin Visit Number: [id number] ATTENTION: The Clinical Documentation Specialists (CDI) and [facility] Coding Staff appreciate your assistance in clarifying documentation. Please respond to the clarification below the line at the bottom and electronically sign. The CDI & [facility] Coding staff will review the response and follow-up if needed. Please note: Queries are made part of the Legal Health Record. If you have any questions, please contact the author of this message via ITS. Bridgett Lucas MD "Worsening renal function" was documented in the 04/21 Progress note and requires further clairification. History/Risk Factors: alcoholic cirrhosis, pancreatic CA, COPD 03/27/18 Patients baseline BUN/CR/GFR: 41/1.5/ 47.2 Clinical Indicators: Current BUN: 38/79/79/94 Cr: 1.62/2.06/1.79/2.55 GFR : 42/32/38/25 Treatment: Consults: GI, Oncology IVF: 0.9% NS @ 50 cc/hr In order to capture the severity of condition, please clarify if the condition signifies: Acute renal failure, Please specify etiology (if known): Cortical Necrosis Medullary Necrosis Tubular Necrosis Acute kidney injury Acute on chronic renal failure CKD Stage 1 GFR >90 CKD Stage 2 GFR 60-89 CKD Stage 3 GFR 30-59 CKD Stage 4 GFR 15-29 CKD Stage 5 GFR <15 Chronic renal failure/Chronic Kidney disease (CKD) please stage if known CKD Stage 1 GFR >90 CKD Stage 2 GFR 60-89 CKD Stage 3 GFR 30-59 CKD Stage 4 GFR 15-29 CKD Stage 5 GFR <15 ESRD Other, please specify Unable to determine Please continue to document in your progress notes and discharge summary in order to capture severity of illness and risk of mortality. Include clinical findings that support your diagnosis. MTDD
[2018-04-23] MEDS ORDERED: DEXTROSE 50%-WATER 50 ML SYRINGE IVP STA (12:03)
[2018-04-23 12:09] LABS: Poikilocytosis (M) Present
[2018-04-23] MEDS: FILGRASTIM-SNDZ 300 MCG/0.5 ML SYRINGE SQ SCH (12:24)
[2018-04-23 12:33] LABS: Glucose,Whole Blood 50 mg/dL (75-99)
[2018-04-23 12:34] LABS: Glucose,Whole Blood 87 mg/dL (75-99)
[2018-04-23 14:20] VITALS: BP 90/48
[2018-04-23] MEDS: MORPHINE SULFATE 4 MG/ML SYRINGE IVP PRN (15:27)
[2018-04-23] MEDS ORDERED: LORazepam 0.5 MG TAB SUBLINGUAL PRN (16:32)
[2018-04-23] MEDS ORDERED: ACETAMINOPHEN TAB 325 MG TAB PO PRN (16:32)
[2018-04-23] MEDS ORDERED: ACETAMINOPHEN SUPPOSITORY 650 MG SUPP RECTAL PRN (16:32)
--- NOTE | 2018-04-23 17:43 | P.PN ---
Subjective Progress Note Date: 04/23/18 Principal diagnosis: metastatic pancreatic adenocarcinoma Pt seen today in f/u, he is acutely confused. He is unable to follow commands, he is agitated and pulling at his gown. Objective - Vital Signs Vital signs: Vital Signs Temp 97.8 F 04/23/18 05:00 Pulse 69 04/23/18 05:00 Resp 16 04/23/18 05:00 BP 90/48 04/23/18 13:00 Pulse Ox 100 04/23/18 05:00 Intake & Output 04/22/18 04/23/18 04/23/18 18:59 06:59 18:59 Intake Total 140 400 Balance 140 400 Intake: Intake, IV Titration 140 400 Amount Sodium Chloride 0.9% 1, 140 400 000 ml @ 50 mls/hr IV . Q20H [facility] Rx#:[id number] Oral 0 Other: Voiding Method Toilet Diaper Diaper Urinal Incontinent Diaper Incontinent # Voids 0 2 - Constitutional General appearance: Present: disheveled, thin - Respiratory Respiratory: bilateral: rhonchi - Cardiovascular Details: tachycardia Heart sounds: normal: S1, S2 - Peripheral edema foot Peripheral Edema: bilateral: Trace, Pitting - Gastrointestinal General gastrointestinal: Present: normal bowel sounds, scaphoid, soft - Integumentary Integumentary: Present: pale - Neurologic Neurologic Comment(s): moving all extremities - Musculoskeletal Musculoskeletal: Present: generalized weakness - Psychiatric Psychiatric: Absent: A&O x's 3, appropriate affect, intact judgment & insight - Labs CBC & Chem 7: 04/23/18 11:09 04/23/18 11:09 Labs: Abnormal Lab Results - Last 24 Hours (Table) 04/23/18 04/23/18 04/23/18 Range/Units 11:09 11:09 12:20 WBC 0.5 L* (3.8-10.6) k/uL RBC 3.29 L (4.30-5.90) m/uL Hgb 11.2 L (13.0-17.5) gm/dL Hct 33.8 L (39.0-53.0) % MCV 102.6 H (80.0-100.0) fL RDW 17.2 H (11.5-15.5) % Plt Count 62 L (150-450) k/uL Potassium 5.7 H (3.5-5.1) mmol/L Chloride 119 H (98-107) mmol/L Carbon Dioxide 12 L (22-30) mmol/L BUN 94 H (9-20) mg/dL Creatinine 2.55 H (0.66-1.25) mg/dL Glucose 39 L* (74-99) mg/dL POC Glucose (mg/dL) 50 L (75-99) mg/dL Total Bilirubin 3.3 H (0.2-1.3) mg/dL Total Protein 5.7 L (6.3-8.2) g/dL Albumin 2.5 L (3.5-5.0) g/dL Microbiology - Last 24 Hours (Table) 04/19/18 18:52 Blood Culture - Preliminary Blood No Growth after 72 hours 04/19/18 14:45 Gram Stain - Preliminary Peritoneal Fluid Body Fluid Culture - Preliminary Assessment and Plan (1) Confusion and disorientation Narrative/Plan: Acute, 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 Pt is too agitated for any imaging Current Visit: Yes Status: Acute Priority: High Code(s): F99 - MENTAL DISORDER, NOT OTHERWISE SPECIFIED SNOMED Code(s): 60787103 (2) Ascites Narrative/Plan: S/P paracentesis, report pending for total amount of fluid removed Current Visit: Yes Status: Acute Priority: High Code(s): R18.8 - OTHER ASCITES SNOMED Code(s): 102944065 (3) Pancreatic cancer Narrative/Plan: Ca 19.9 ordered to evaluate if treatment has had any effect of malignancy Current Visit: Yes Status: Acute Priority: High Code(s): C25.9 - MALIGNANT NEOPLASM OF PANCREAS, UNSPECIFIED SNOMED Code(s): 221733706 (4) Neutropenia Narrative/Plan: GCSF ordered for neutropenia Current Visit: Yes Status: Acute Priority: High Code(s): D70.9 - NEUTROPENIA, UNSPECIFIED SNOMED Code(s): 974454298 (5) Thrombocytopenia Narrative/Plan: No acute intervention needed, plt>50,000 Current Visit: Yes Status: Acute Priority: Medium Code(s): D69.6 - THROMBOCYTOPENIA, UNSPECIFIED SNOMED Code(s): 774313250 Plan: Discussed case with Attending later in the day. Family has concerns as they are unable to care for pt, it was difficult for them even prior to admission. Pt has progressively declined this admit despite treatments. Family has requested hospice. From an Oncology standpoint this is a reasonable plan of care. Attending has ordered hospice consult, plans for placement.
[2018-04-24] MEDS: MORPHINE SULFATE 4 MG/ML SYRINGE IVP PRN ×2 (00:49→10:57)
[2018-04-24] MEDS: DEXTROSE 5%-0.9% NACL 1,000 ML IV SCH ×2 (02:02→12:37)
--- NOTE | 2018-04-24 02:16 | P.DS ---
Providers Date of admission: 04/18/18 22:30 Attending physician: Bridgett Haskins Consults: 04/18/18 22:02 Consult Physician Routine Consulting Provider: Prince Howe Consult Reason/Comments: ascities Do you want consulting provider notified?: Yes, Notify in am Placement Type Exists?: Yes 04/19/18 10:52 Consult Physician Routine Consulting Provider: Tigist Dior Consult Reason/Comments: pancreatic cancer Do you want consulting provider notified?: Yes Primary care physician: Stated None Hospital Course: Please use this as a progress note. Patient remains confused. Family currently discussing placement versus hospice. Final Diagnoses: -Ascites, symptomatic,Status post therapeutic paracentesis removal of 8 L of fluid appeared to be exudative secondary to cancer mostly --Pancreatic cancer recently received chemotherapy -Neutropenia secondary to recent chemotherapy, improving now -Hyperkalemia secondary to KIMBERLEY inhibitor and Aldactone both of which are discontinued -COPD without any acute exacerbation -Sinus tachycardia reflex tachycardia, patient did not receive his beta nora, resumed on metoprolol secondary to borderline low blood pressure -Depression -Acute C. difficile colitis Hospital course:Patient with cirrhosis and pancreatic cancer admitted for therapeutic paracentesis patient had removal of total of 8 L of peritoneal fluid. The fluid lab results are exudative in nature probably because of the pancreatic cancer. Patient had elevated lactic acid which has come down now to 2.5 lactic acid elevation is secondary to cirrhosis. His white blood cell count is getting better patient is bit tachycardic I do not have his potassium available today. We'll repeat this, his metabolic profile today as well as tomorrow. We will await for PT and OT evaluation possibility of discharge tomorrow. Constitutional: Denied any fatigue denied any fever. Cardio vascular: denied any chest pain, palpitations Gastrointestinal denied any nausea vomiting Pulmonary: Denied any shortness of breath cough Neurologic denied any new focal deficits All inpatient medications were reviewed and appropriate changes in these medications as dictated in the interval history and assessment and plan. 04/21/2018 persistent diarrhea, 3 episodes this morning. Tested positive for C. difficile. Oral vancomycin initiated. Denies abdominal pain. No nausea or vomiting. Worsening renal function, creatinine 2.06. Potassium 5.6. 04/22/2018 continues on antibiotics for C. difficile colitis.renal function slowly improving, creatinine down to 1.79, currently off diuretics. Confused. Paracentesis cytology pending. Vital Signs Temp 97.6 F 04/22/18 05:00 Pulse 88 04/22/18 12:38 Resp 17 04/22/18 05:00 BP 122/64 04/22/18 05:00 Pulse Ox 94 L 04/22/18 05:00 - Exam GENERAL: The patient is alert and oriented x3, not in any acute distress. Thin built cachectic. HEENT: Pupils are round and equally reacting to light. EOMI. No scleral icterus. No conjunctival pallor. Normocephalic, atraumatic. CARDIOVASCULAR: S1 and S2 present. No murmurs, rubs, or gallops. PULMONARY: Chest is clear to auscultation, no wheezing or crackles. ABDOMEN: Soft today significantly improved abdominal distention after peritoneal tap MUSCULOSKELETAL: No joint swelling or deformity. EXTREMITIES: No cyanosis, clubbing, or pedal edema. NEUROLOGICAL: Gross neurological examination did not reveal any focal deficits. Plan: Continue on current medication regime ,monitoring and symptomatic treatment. Discharge placed on hold as family discussing placement, as mentioned above. Close monitoring of electrolytes, renal function, CBC with repeat labs ordered for a.m. Prognosis guarded. The impression and plan of care has been dictated as directed. : I performed a history and examination of this patient, discussed the same with the dictator. I agree with the dictator's note ,documented as a scribe. Any additional findings or plans will be noted. Plan - Discharge Summary New Discharge Prescriptions: New Vancomycin Oral Solution 125 mg PO Q6HR #10 Continue Tiotropium Dryden [Spiriva] 1 cap INHALATION RT-DAILY Cholecalciferol [Vitamin D3] 1,000 unit PO DAILY Pravastatin Sodium [Pravachol] 20 mg PO DAILY Multivitamin [Men's Multi-Vitamin] 1 tab PO DAILY Atenolol [Tenormin] 50 mg PO DAILY Aspirin 81 mg PO DAILY ALPRAZolam [Xanax] 0.25 mg PO TID PRN PRN Reason: Anxiety Albuterol Sulfate [Proair Respiclick] 2 puff PO RT-QID PRN PRN Reason: Shortness Of Breath Ascorbic Acid [Vitamin C] 500 mg PO BID Budesonide/Formoterol Fumarate [Symbicort 160-4.5 Mcg Inhaler] 2 puff INHALATION RT-BID Triamcinolone 0.1% Cream [Kenalog 0.1% Cream] 1 applicatio TOPICAL DAILY Discontinued Spironolactone [Aldactone] 25 mg PO BID Lisinopril [Prinivil] 10 mg PO DAILY Lisinopril [Zestril] 5 mg PO HS Discharge Medication List ALPRAZolam [Xanax] 0.25 mg PO TID PRN 03/03/18 [History] Albuterol Sulfate [Proair Respiclick] 2 puff PO RT-QID PRN 03/03/18 [History] Aspirin 81 mg PO DAILY 03/03/18 [History] Atenolol [Tenormin] 50 mg PO DAILY 03/03/18 [History] Cholecalciferol [Vitamin D3] 1,000 unit PO DAILY 03/03/18 [History] Multivitamin [Men's Multi-Vitamin] 1 tab PO DAILY 03/03/18 [History] Pravastatin Sodium [Pravachol] 20 mg PO DAILY 03/03/18 [History] Tiotropium [place]den [Spiriva] 1 cap INHALATION RT-DAILY 03/03/18 [History] Ascorbic Acid [Vitamin C] 500 mg PO BID 04/18/18 [History] Budesonide/Formoterol Fumarate [Symbicort 160-4.5 Mcg Inhaler] 2 puff INHALATION RT-BID 04/18/18 [History] Triamcinolone 0.1% Cream [Kenalog 0.1% Cream] 1 applicatio TOPICAL DAILY [History] Vancomycin Oral Solution 125 mg PO Q6HR #10 04/22/18 [Rx] Follow up Appointment(s)/Referral(s): Eloy Johnson DO [Doctor of Osteopathic Medicine] - 3 Days Ambulatory/Diagnostic Orders: Basic Metabolic Panel [LAB.AMB] Time Frame: 3 Days, Location: None Selected Patient Instructions/Handouts: Vancomycin (By mouth), C Diff (Clostridium Difficile) Infection (DC), Ascites (DC) Discharge Disposition: HOME SELF-CARE
--- NOTE | 2018-04-24 02:33 | P.PN ---
Subjective Progress Note Date: 04/23/18 Prognosis note being dictated for Dr. Mckeon. Interval history:Patient with cirrhosis and pancreatic cancer admitted for therapeutic paracentesis patient had removal of total of 8 L of peritoneal fluid. The fluid lab results are exudative in nature probably because of the pancreatic cancer. Patient had elevated lactic acid which has come down now to 2.5 lactic acid elevation is secondary to cirrhosis. His white blood cell count is getting better patient is bit tachycardic I do not have his potassium available today. We'll repeat this, his metabolic profile today as well as tomorrow. We will await for PT and OT evaluation possibility of discharge tomorrow. Constitutional: Denied any fatigue denied any fever. Cardio vascular: denied any chest pain, palpitations Gastrointestinal denied any nausea vomiting Pulmonary: Denied any shortness of breath cough Neurologic denied any new focal deficits All inpatient medications were reviewed and appropriate changes in these medications as dictated in the interval history and assessment and plan. 04/21/2018 persistent diarrhea, 3 episodes this morning. Tested positive for C. difficile. Oral vancomycin initiated. Denies abdominal pain. No nausea or vomiting. Worsening renal function, creatinine 2.06. Potassium 5.6. 04/23/2018 patient continues to decline. Confused. Paracentesis cytology pending. Renal function worsened, creatinine 2.55, potassium 5.7. Platelets decreased to 52. Poor diet intake , blood sugars dropped to 39, currently receiving D5W. Ammonia level less than 9. Total bili increased to 3.3. CA-19-9 -9 antigen elevated, 29[address].4. Family at bedside, requesting comfort care, hospice. Objective - Vital Signs Vital signs: Vital Signs Temp 97.8 F 04/23/18 05:00 Pulse 69 04/23/18 05:00 Resp 16 04/23/18 05:00 BP 90/48 04/23/18 13:00 Pulse Ox 100 04/23/18 05:00 Intake & Output 04/23/18 04/23/18 04/24/18 06:59 18:59 06:59 Intake Total 400 200 Balance 400 200 Intake: Intake, IV Titration 400 200 Amount Sodium Chloride 0.9% 1, 400 200 000 ml @ 50 mls/hr IV . Q20H GENO Rx#:[id number] Oral 0 Other: Voiding Method Diaper Diaper Incontinent # Voids 0 2 - Exam GENERAL: The patient is alert and oriented x1 to self, no acute distress. Thin built cachectic. HEENT: Pupils are round and equally reacting to light. EOMI. No scleral icterus. Normocephalic, atraumatic. CARDIOVASCULAR: S1 and S2 present, tachycardic. No murmurs, rubs, or gallops. PULMONARY: Rhonchorous, no wheezing or crackles. ABDOMEN: Soft, nontender, nondistended, positive bowel sounds. No palpable organomegaly. MUSCULOSKELETAL: No joint swelling or deformity. EXTREMITIES: No cyanosis, clubbing, trace pedal edema. NEUROLOGICAL: Unable to assess patient alert and oriented only to self at this time. - Labs CBC & Chem 7: 04/23/18 11:04/23/18 11:09 Labs: Abnormal Lab Results - Last 24 Hours (Table) 04/23/18 04/23/18 04/23/18 Range/Units 11: 11: 11:09 WBC 0.5 L* (3.8-10.6) k/uL RBC 3.29 L (4.30-5.90) m/uL Hgb 11.2 L (13.0-17.5) gm/dL Hct 33.8 L (39.0-53.0) % MCV 102.6 H (80.0-100.0) fL RDW 17.2 H (11.5-15.5) % Plt Count 62 L (150-450) k/uL Potassium 5.7 H (3.5-5.1) mmol/L Chloride 119 H (98-107) mmol/L Carbon Dioxide 12 L (22-30) mmol/L BUN 94 H (9-20) mg/dL Creatinine 2.55 H (0.66-1.25) mg/dL Glucose 39 L* (74-99) mg/dL POC Glucose (mg/dL) (75-99) mg/dL Total Bilirubin 3.3 H (0.2-1.3) mg/dL Total Protein 5.7 L (6.3-8.2) g/dL Albumin 2.5 L (3.5-5.0) g/dL CA 19-9 Antigen 86405.4 H (0.0-34.9) U/mL 04/23/18 Range/Units 12:20 WBC (3.8-10.6) k/uL RBC (4.30-5.90) m/uL Hgb (13.0-17.5) gm/dL Hct (39.0-53.0) % MCV (80.0-100.0) fL RDW (11.5-15.5) % Plt Count (150-450) k/uL Potassium (3.5-5.1) mmol/L Chloride (98-107) mmol/L Carbon Dioxide (22-30) mmol/L BUN (9-20) mg/dL Creatinine (0.66-1.25) mg/dL Glucose (74-99) mg/dL POC Glucose (mg/dL) 50 L (75-99) mg/dL Total Bilirubin (0.2-1.3) mg/dL Total Protein (6.3-8.2) g/dL Albumin (3.5-5.0) g/dL CA 19-9 Antigen (0.0-34.9) U/mL Microbiology - Last 24 Hours (Table) 04/19/18 18:52 Blood Culture - Preliminary Blood No Growth after 96 hours 04/19/18 14:45 Gram Stain - Final Peritoneal Fluid Body Fluid Culture - Final Assessment and Plan Assessment: -Ascites, symptomatic , Status post therapeutic paracentesis removal of 8 L of fluid appeared to be exudative secondary to cancer mostly --Pancreatic cancer recently received chemotherapy -Advanced liver cirrhosis -Neutropenia secondary to recent chemotherapy -Thrombocytopenia -Hyperkalemia secondary to KIMBERLEY inhibitor and Aldactone both of which are discontinued, and acute renal failure -COPD without any acute exacerbation -Sinus tachycardia reflex tachycardia -Depression -Acute C. difficile colitis -Hypoglycemia, poor diet intake -No code, no CPR, no intubation -Comfort Care, hospice pending. Plan: Continue on current medication regime ,monitoring and symptomatic treatment. Family requesting comfort care, hospice given patient's continued decline. Comfort care initiated. flying squad worker arranging hospice placement. The impression and plan of care has been dictated as directed. : I performed a history and examination of this patient, discussed the same with the dictator. I agree with the dictator's note ,documented as a scribe. Any additional findings or plans will be noted.
[2018-04-24] MEDS: VANCOMYCIN ORAL SOLUTION 250 MG/5 ML BOTTLE PO SCH ×2 (05:58→10:56)
[2018-04-24] MEDS: FILGRASTIM-SNDZ 300 MCG/0.5 ML SYRINGE SQ SCH (10:55)
[2018-04-24] MEDS: FAMOTIDINE 20 MG TAB PO SCH (10:55)
[2018-04-24] MEDS: METOPROLOL TARTRATE 50 MG TAB PO SCH (10:55)
[2018-04-24] MEDS: SODIUM CHLORIDE 0.9% 1,000 ML IV SCH (10:56)
--- NOTE | 2018-04-24 12:21 | P.PN ---
Subjective Progress Note Date: 04/24/18 Principal diagnosis: Metastatic pancreatic cancer shortness of breath Nonresponsive. Comfort care. Objective - Vital Signs Vital signs: Vital Signs Temp 97.8 F 04/23/18 05:00 Pulse 69 04/23/18 05:00 Resp 18 04/24/18 08:05 BP 90/48 04/23/18 13:00 Pulse Ox 100 04/23/18 05:00 Intake & Output 04/23/18 04/24/18 04/24/18 18:59 06:59 18:59 Intake Total 1100 Balance 1100 Intake: Intake, IV Titration 1100 Amount Dextrose 5%-0.9% NaCl 1, 900 000 ml @ 75 mls/hr IV . [id number] GENO Rx#:[id number] Sodium Chloride 0.9% 1, 200 000 ml @ 50 mls/hr IV . Q20H GENO Rx#:[id number] Other: Voiding Method Diaper Diaper Diaper Incontinent Incontinent # Voids 2 - Exam General appearance: The patient is nonresponsive. Cachectic appearance. HET: Head is normocephalic and atraumatic. Pupils are equal and reactive. Oropharynx is clear without lesions. Neck: Supple without lymphadenopathy. Trachea midline. Heart: S1 S2. Regular rate and rhythm. Lungs: No crackles or wheezes are heard. Abdomen: Soft, nontender, nondistended with hypoactive bowel sounds. No peritoneal signs. No palpable organomegaly or masses. Extremities: Bilateral feet cyanotic. Neurological: nonresponsive - Labs CBC & Chem 7: 04/23/18 11:09 04/23/18 11:09 Labs: Abnormal Lab Results - Last 24 Hours (Table) 04/23/18 04/23/18 Range/Units 11: 12:20 POC Glucose (mg/dL) 50 L (75-99) mg/dL CA 19-9 Antigen 45546.4 H (0.0-34.9) U/mL Microbiology - Last 24 Hours (Table) 04/19/18 14:45 Anaerobic Culture - Final Peritoneal Fluid 04/19/18 18:52 Blood Culture - Preliminary Blood No Growth after 96 hours 04/19/18 14:45 Gram Stain - Final Peritoneal Fluid Body Fluid Culture - Final Assessment and Plan (1) Ascites Current Visit: Yes Status: Acute Priority: High Code(s): R18.8 - OTHER ASCITES SNOMED Code(s): 195079116 (2) Pancreatic cancer Current Visit: Yes Status: Acute Priority: High Code(s): C25.9 - MALIGNANT NEOPLASM OF PANCREAS, UNSPECIFIED SNOMED Code(s): 922533525 Plan: 1. Patient is nonresponsive Comfort Care. Continue with Comfort Care measures. No further workup from a GI standpoint. We'll sign off. Assessment and plan a care discussed with Dr. Howe
[2018-04-24] MEDS: SYMBICORT 160-4.5 MCG INHALER INHALATION SCH (12:34)
[2018-04-24] MEDS: IPRATROPIUM-ALBUTEROL 3 ML NEB INHALATION SCH (12:34)
[2018-04-24 12:35] VITALS: RESP 3
[2018-04-24] MEDS: TRIAMCINOLONE 0.1% CREAM 80 GM TUBE TOPICAL SCH (13:14)
--- NOTE | 2018-04-24 15:20 | P.DS ---
Providers Date of admission: 04/18/18 22:30 Attending physician: Bridgett Haskins Consults: 04/19/18 10:52 Consult Physician Routine Consulting Provider: Tigist Dior Consult Reason/Comments: pancreatic cancer Do you want consulting provider notified?: Yes Primary care physician: Stated None Hospital Course: This dictation is both progress note and discharge summary Patient with cirrhosis and pancreatic cancer admitted for therapeutic paracentesis patient had removal of total of 8 L of peritoneal fluid. The fluid lab results are exudative in nature probably because of the pancreatic cancer. Patient had elevated lactic acid which has come down now to 2.5 lactic acid elevation is secondary to cirrhosis. His white blood cell count is getting better patient is bit tachycardic I do not have his potassium available today. We'll repeat this, his metabolic profile today as well as tomorrow. We will await for PT and OT evaluation possibility of discharge tomorrow. 04/21/2018 persistent diarrhea, 3 episodes this morning. Tested positive for C. difficile. Oral vancomycin initiated. Denies abdominal pain. No nausea or vomiting. Worsening renal function, creatinine 2.06. Potassium 5.6. 04/23/2018 patient continues to decline. Confused. Paracentesis cytology pending. Renal function worsened, creatinine 2.55, potassium 5.7. Platelets decreased to 52. Poor diet intake , blood sugars dropped to 39, currently receiving D5W. Ammonia level less than 9. Total bili increased to 3.3. CA-19-9 -9 antigen elevated, 823[address].4. Family at bedside, requesting comfort care, hospice. 04/24/2018 Patient was made comfort care and plan was to discharge him home with hospice. Today morning patient was not doing well did not believe that arranging hospice at the home and sending him home as hospice is appropriate at we did not feel like that he will will be able to make it to home. Plan was to make him inpatient hospice here. Patient was on comfort care measures subsequently . Please refer to nursing documentation for time of Preliminary cause of C. diff colitis with contribution from cirrhosis and pancreatic cancer Assessment and Plan Assessment: -Ascites, symptomatic , Status post therapeutic paracentesis removal of 8 L of fluid appeared to be exudative secondary to cancer mostly --Pancreatic cancer recently received chemotherapy -Advanced liver cirrhosis -Neutropenia secondary to recent chemotherapy -Thrombocytopenia -Hyperkalemia secondary to KIMBERLEY inhibitor and Aldactone both of which are discontinued, and acute renal failure -COPD without any acute exacerbation -Sinus tachycardia reflex tachycardia -Depression -Acute C. difficile colitis -Hypoglycemia, poor diet intake -No code, no CPR, no intubation -Comfort Care, hospice. Plan - Discharge Summary New Discharge Prescriptions: New Vancomycin Oral Solution 125 mg PO Q6HR #10 Continue Tiotropium [place] [Spiriva] 1 cap INHALATION RT-DAILY Cholecalciferol [Vitamin D3] 1,000 unit PO DAILY Pravastatin Sodium [Pravachol] 20 mg PO DAILY Multivitamin [Men's Multi-Vitamin] 1 tab PO DAILY Atenolol [Tenormin] 50 mg PO DAILY Aspirin 81 mg PO DAILY ALPRAZolam [Xanax] 0.25 mg PO TID PRN PRN Reason: Anxiety Albuterol Sulfate [Proair Respiclick] 2 puff PO RT-QID PRN PRN Reason: Shortness Of Breath Ascorbic Acid [Vitamin C] 500 mg PO BID Budesonide/Formoterol Fumarate [Symbicort 160-4.5 Mcg Inhaler] 2 puff INHALATION RT-BID Triamcinolone 0.1% Cream [Kenalog 0.1% Cream] 1 applicatio TOPICAL DAILY Discontinued Spironolactone [Aldactone] 25 mg PO BID Lisinopril [Prinivil] 10 mg PO DAILY Lisinopril [Zestril] 5 mg PO HS Discharge Medication List ALPRAZolam [Xanax] 0.25 mg PO TID PRN 03/03/18 [History] Albuterol Sulfate [Proair Respiclick] 2 puff PO RT-QID PRN 03/03/18 [History] Aspirin 81 mg PO DAILY 03/03/18 [History] Atenolol [Tenormin] 50 mg PO DAILY 03/03/18 [History] Cholecalciferol [Vitamin D3] 1,000 unit PO DAILY 03/03/18 [History] Multivitamin [Men's Multi-Vitamin] 1 tab PO DAILY 03/03/18 [History] Pravastatin Sodium [Pravachol] 20 mg PO DAILY 03/03/18 [History] Tiotropium [place] [Spiriva] 1 cap INHALATION RT-DAILY 03/03/18 [History] Ascorbic Acid [Vitamin C] 500 mg PO BID 04/18/18 [History] Budesonide/Formoterol Fumarate [Symbicort 160-4.5 Mcg Inhaler] 2 puff INHALATION RT-BID 04/18/18 [History] Triamcinolone 0.1% Cream [Kenalog 0.1% Cream] 1 applicatio TOPICAL DAILY [History] Vancomycin Oral Solution 125 mg PO Q6HR #10 04/22/18 [Rx] Follow up Appointment(s)/Referral(s): Eloy Johnson DO [Doctor of Osteopathic Medicine] - 3 Days Ambulatory/Diagnostic Orders: Basic Metabolic Panel [LAB.AMB] Time Frame: 3 Days, Location: None Selected Patient Instructions/Handouts: Vancomycin (By mouth), C Diff (Clostridium Difficile) Infection (DC), Ascites (DC) Discharge Disposition: HOME SELF-CARE
--- NOTE | 2018-04-28 12:30 | US ---
EXAMINATION TYPE: US paracentesis abd w/image DATE OF EXAM: 04/19/2018 CLINICAL HISTORY: 67-year-old male referred for ultrasound-guided paracentesis. History of pancreati c cancer with trouble breathing. The procedure was discussed with the patient. The risks, complications, benefits, and alternatives we re discussed and any questions were answered. Informed consent was obtained. The patient was placed s upine on the ultrasound table and prepped and draped in the usual sterile fashion. All elements of maximal barrier technique were utilized. The precise skin entry site along the right lower quadrant was marked by ultrasound. Utilizing trocar technique and 6 Lao [id number] catheter, catheter was advanced into the righ t lower quadrant ascites collection. 60 mL of aspirate was labeled and sent for laboratory assessment . Subsequently, 8.9 L of additional straw-colored fluid was removed. The catheter was removed, hemostasis obtained, and a bandage placed. The patient's condition was improved following the procedure. Nursing continued the patient's care af ter successful paracentesis. IMPRESSION: Successful diagnostic and therapeutic paracentesis under ultrasound guidance. Approximately 9 L of cl ear, straw-colored fluid removed. Laboratory analysis pending.
--- NOTE | 2018-04-28 17:35 | CDI ---
Documentation Clarification Form Date: 04/28/2018 5:20:16 PM From: Ale Martell Email: Admit Date: 04/18/2018 10:30:00 PM Patient Name: Mir Benjamin Visit Number: [id number] Discharge Date: 04/24/2018 ATTENTION: The Clinical Documentation Specialists (CDI) and [facility] Coding Staff appreciate your assistance in clarifying documentation. Please respond to the clarification below the line at the bottom and electronically sign. The CDI & [facility] Coding staff will review the response and follow-up if needed. Please note: Queries are made part of the Legal Health Record. If you have any questions, please contact the author of this message via ITS. Rosemarie Salazar MD History/Risk Factors: Cirrhosis, pancreatic Ca with recent chemo, CKD Clinical indicators: Tachycardic, ascites, worsening renal function BUN: 38-94 Cr: 1.65-2.55 GFR: 42 down to 25 Treatment:Patients medications include: Tenormin, Lopressor, Kayexalate IVF: NS@75/hr In order to capture the severity of condition, please clarify if the condition signifies: CKD Stage 1 (GFR > 90) CKD Stage 2 (GFR 60-89) CKD Stage 3 (GFR 30-59) CKD Stage 4 (GFR 15-29) CKD Stage 5 (GFR <15) ESRD Other, please specify Unable to determine MTDD
--- NOTE | 2018-04-28 19:33 | CDI ---
Documentation Clarification Form Date: 04/28/2018 7:19:31 PM From: Sheela Martell Email: [email or web address] Admit Date: 04/18/2018 10:30:00 PM Patient Name: Mir Benjamin Visit Number: [id number] Discharge Date: 04/24/2018 ATTENTION: The Clinical Documentation Specialists (CDI) and [facility] Coding Staff appreciate your assistance in clarifying documentation. Please respond to the clarification below the line at the bottom and electronically sign. The CDI & [facility] Coding staff will review the response and follow-up if needed. Please note: Queries are made part of the Legal Health Record. If you have any questions, please contact the author of this message via ITS. Rosemarie Salazar MD Malnutrition has been documented in the Registered Dietitian's note. History/Risk Factors: Pancreatic cancer, recent chemotherapy, ascites Clinical Indicators: poor appetite, eats only fruit, scooping in temporal area, squared shoulders and hips, sunken eyes Labs: Albumin/Total Protein: 2.5/5.7 Current BMI: 18.5 Insufficient energy intake: poor oral intake Weight Loss: 21% in 1 year Loss of subcutaneous fat: visible loss of fat Loss of muscle mass: visible muscle loss Fluid accumulation: ascites Treatment: Healthful diet, Ensure Enlive Dietary Consult: diagnosis of malnutrition Supplements: Ensure Enlive Lab monitoring: Electrolytes, Albumin, Total Protein In your professional opinion, can you please clarify if these findings signify one of the following conditions? Mild Protein-Calorie Malnutrition Moderate Protein-Calorie Malnutrition Severe Protein-Calorie Malnutrition Other condition, please specify Unable to determine Mild Protein-Calorie Malnutrition MTDD
--- NOTE | 2018-04-29 09:51 | CDI ---
Documentation Clarification Form Date: 04/28/2018 8:04:00 PM From: Sheela Martell Phone: Admit Date: 04/18/2018 10:30:00 PM Patient Name: Mir Benjamin Visit Number: [id number] Discharge Date: ATTENTION: The Clinical Documentation Specialists (CDI) and [facility] Coding Staff appreciate your assistance in clarifying documentation. Please respond to the clarification below the line at the bottom and electronically sign. The CDI & [facility] Coding staff will review the response and follow-up if needed. Please note: Queries are made part of the Legal Health Record. If you have any questions, please contact the author of this message via ITS. Rosemarie Lyons MD The patient was admitted with ascites s/p paracentesis. Severe neutropenia from recent chemotherapy and thrombocytopenia has been documented in the progress notes and discharge summary. History/Risk factors: Pancreatic Cancer, recent chemotherapy - FOLFOX Clinical indicators: weakness, ascites, abdominal distention, SOB Labs: WBC 0.5, RBC 3.20, Hgb 10.9, Platelets 62, Neuts 0.4, Lymphs 0.8, Ca 19-9 Antigen 83527.4 Treatment: Filgrastim, Monitor labs In your professional opinion, can you please clarify if these findings signify one of the following conditions? Pancytopenia due to chemotherapy Pancytopenia drug induced, specify drug Pancytopenia due to other, please specify Other condition, please specify ____ Unable to determine Pancytopenia secondary to cirrhosis MTDD
== END 2018-04-24 15:20 | disposition expired | DRG 436 ==
LOC: 3NMEDONC 22:30
PROVIDERS: ADMIT Internal Medicine; ATTEND Internal Medicine
PROC: 0W9G3ZZ Drainage of Peritoneal Cavity, Percutaneous Approach (ICD-10-PCS; principal; 2018-04-19)
DX: C25.9 Malignant neoplasm of pancreas, unspecified (principal); R18.0 Malignant ascites; A04.72 Enterocolitis due to Clostridium difficile, not specified as recurrent; E87.2 Acidosis; N17.9 Acute kidney failure, unspecified; E44.1 Mild protein-calorie malnutrition; Z68.1 Body mass index [BMI] 19.9 or less, adult; D69.6 Thrombocytopenia, unspecified; D70.1 Agranulocytosis secondary to cancer chemotherapy; E16.2 Hypoglycemia, unspecified; E87.5 Hyperkalemia; F32.9 Major depressive disorder, single episode, unspecified; F41.9 Anxiety disorder, unspecified; I12.9 Hypertensive chronic kidney disease with stage 1 through stage 4 chronic kidney disease, or unspecified chronic kidney disease; J44.9 Chronic obstructive pulmonary disease, unspecified; K72.90 Hepatic failure, unspecified without coma; N18.9 Chronic kidney disease, unspecified; T45.1X5A Adverse effect of antineoplastic and immunosuppressive drugs, initial encounter; T46.4X5A Adverse effect of angiotensin-converting-enzyme inhibitors, initial encounter; Z51.5 Encounter for palliative care; Z79.51 Long term (current) use of inhaled steroids; Z79.82 Long term (current) use of aspirin; Z82.5 Family history of asthma and other chronic lower respiratory diseases; Z87.891 Personal history of nicotine dependence; Z88.0 Allergy status to penicillin
CPT/HCPCS: 49083; 76705; 80048; 80053; 82042; 82140; 82945; 83605; 84157; 85025; 85027; 85610; 86301; 87040; 87070; 87075; 87205; 87324; 88108; 88305; 88341; 88342; 89050; 94640